=== PATIENT | female | born 1960 | race Caucasian/White ===

== ENCOUNTER → 2024-03-24 10:45 | Outpatient (REF) | payer OTHER, SELFPAY | LOC: WDC 10:45 | PROVIDERS: ATTENDING PHYSICIAN Obstetrics & Gynecology Gynecology; FAMILY PHYSICIAN Nurse Practitioner | DX: Z12.31 Encounter for screening mammogram for malignant neoplasm of breast (principal) | CPT/HCPCS: 77063; 77067 ==

== ENCOUNTER → 2025-04-14 09:09 | Outpatient (REF) | payer OTHER, SELFPAY | LOC: WDC 09:09 | PROVIDERS: ATTENDING PHYSICIAN Obstetrics & Gynecology Gynecology; FAMILY PHYSICIAN Nurse Practitioner | DX: M85.89 Other specified disorders of bone density and structure, multiple sites (principal); Z12.39 Encounter for other screening for malignant neoplasm of breast; Z12.31 Encounter for screening mammogram for malignant neoplasm of breast | CPT/HCPCS: 77063; 77067; 77080 ==